=== PATIENT | male | born 1970 | race African-American/Black ===

== ENCOUNTER 2018-11-02 21:13 | Emergency (ER) | payer OTHER ==
[~2018-11-02] VITALS: Ht 177.8 cm; Wt 71.7 kg
[~2018-11-02 21:13] MED LIST: ACET-787 PO; AMOX500C25 PO; CODE118S2 PO; GABA300C PO; IBUP-974 PO
[2018-11-02 21:23] VITALS: BP 109/70
--- NOTE | 2018-11-02 21:29 | NUR ---
pt ambulated to lobby in stable condition.
--- NOTE | 2018-11-02 22:02 | NUR ---
PT TAKEN TO XRAY FROM [facility]
--- NOTE | 2018-11-02 22:20 | NUR ---
PT TAKEN TO BED 4
--- NOTE | 2018-11-02 22:25 | NUR ---
PATIENT PRESENTS TO ED WITH C/O COUGH AND SOB X 10 DAYS. DENIES N/V/D; SKIN IS PINK/WARM/DRY; AAOX4 WITH EVEN AND STEADY GAIT; LUNGS SOUNDS WHEEZING BILATERAL; HR EVEN AND REGULAR; PT DENIES ANY FEVER AT THIS TIME; PATIENT STATES PAIN OF 5/10 AT THIS TIME;PT HAS BEEN TAKING NYQUIL AND THERAFLU TO RELIEVE COUGH. VSS; PATIENT POSITIONED FOR COMFORT; HOB ELEVATED; BEDRAILS UP X2; BED DOWN. ER MD MADE AWARE OF PT STATUS.
--- NOTE | 2018-11-02 22:29 | NUR ---
Dr. Harris evaluating patient at bedside.
[2018-11-02] MEDS ORDERED: ALBUTEROL SULFATE/IPRATROPIU 3 ML SOL IH ONE (22:45)
--- NOTE | 2018-11-02 22:53 | NUR ---
Respiratory Therapist at bedside for respiratory intervention.
--- NOTE | 2018-11-02 23:50 | NUR ---
PT SITING UP IN BED, STATES HE IS ABLE TO BREATH AND IS NO LONGER SOB. PT LEVEL OF PAIN IS 0/10 AT THIS TIME. ER MADE AWARE
[2018-11-03 01:03] VITALS: BP 109/70
--- NOTE | 2018-11-03 01:03 | NUR ---
Patient discharged with v/s stable. Written and verbal after care instructions given and explained. Patient alert, oriented and verbalized understanding of instructions. Ambulatory with steady gait. All questions addressed prior to discharge. ID band removed. Patient advised to follow up with PMD. Rx of ALBUTEROL AND PROMETHAZINE WAS given. Patient educated on indication of medication including possible reaction and side effects. Opportunity to ask questions provided and answered.
== END 2018-11-03 01:03 | disposition home or self-care (01) ==
LOC: MED 21:13
DX: J44.9 Chronic obstructive pulmonary disease, unspecified (principal); K21.9 Gastro-esophageal reflux disease without esophagitis; F17.200 Nicotine dependence, unspecified, uncomplicated; Z79.899 Other long term (current) drug therapy; Z79.1 Long term (current) use of non-steroidal anti-inflammatories (NSAID); Z79.2 Long term (current) use of antibiotics; Z79.891 Long term (current) use of opiate analgesic
CPT/HCPCS: 71045; 94640; 99283; J7620